=== PATIENT | female | born 2000 | race Caucasian/White ===

== ENCOUNTER 2020-06-08 20:45 | Emergency (ER) | payer OTHER ==
[~2020-06-08] VITALS: Ht 167.6 cm; Wt 59.1 kg
[2020-06-08 20:55] VITALS: Ht 167.6 cm; Wt 59.1 kg
[2020-06-08 22:09] LABS: BASOPHIL % 0.5 % (0.2-1.3); PLATELET COUNT 235 x10^3mcL (179-408); RED CELL DISTRIBUTION WIDTH 12.9 % (12.3-17.7)
[2020-06-08 23:24] VITALS: BP 118/72
== END 2020-06-08 23:24 | disposition home or self-care (01) ==
LOC: ED 20:45
PROVIDERS: Student in an Organized Health Care Education/Training Program
DX: O03.9 Complete or unspecified spontaneous abortion without complication (principal)